=== PATIENT | male | born 1955 | race Caucasian/White ===

== ENCOUNTER → 2016-08-07 | Day surgery (SDC) | payer MEDICARE, OTHER ==
[~2016-08-07] VITALS: Ht 182.9 cm; Wt 74.5 kg
[~2016-08-07] MED LIST: BACITRACIN TOP OINT 15 GM TUBE ONE; BUPIVACAINE HCL PF 0.5% 30 ML VIAL ONE; EPINEPHrine HCL (1:1000) 30 MG/30 ML VIAL ONE; GLIM4TAB PO; HYDR-3583 PO; LACTATED RINGER'S 1000 ML INJ 1,000 ML ONE; LACTATED RINGER'S 1000 ML INJ 500 ML IV SCH; LIDOCAINE HCL 1% 20 ML VIAL ONE; LIDOCAINE HCL 2% 50 ML VIAL ONE; LISI-519 PO; METF1000 PO; METO50TA11 PO; ceFAZolin 2 GM PREMIX 50 ML IV SCH; ceFAZolin 2 GM PREMIX 50 ML ONE
[2016-08-07 12:28] VITALS: BP 156/96; PULSE 91; RESP 18; TEMP 98.1; O2SAT 100
[2016-08-07 15:40] VITALS: TEMP 98.4
[2016-08-07 16:00] VITALS: BP 157/93; PULSE 98; RESP 14; O2SAT 98
--- NOTE | 2016-08-10 12:55 | MP ---
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 POSTOPERATIVE DIAGNOSIS Squamous cell carcinoma in situ the left ring finger. SURGEON Howard Shi MD PROCEDURE PERFORMED Wide excision and full-thickness skin grafting left ring finger squamous cell carcinoma in situ Frozen section:squamous cell carcinoma in-situ. Margins clear No complications. ANESTHESIA Local with a mixture of 40% lidocaine 0.5% Marcaine 10 cc. TOURNIQUET TIME: Tourniquet time was 13 minutes + 17 minutes at 250 mmHg. FINDINGS: To PACU stable. PROCEDURE: The patient is a 61-year-old right-hand dominant male presented with complains of skin lesion over the left ring finger for the past 1-2 years. He had biopsy of the region done by ramp agent and was diagnosed with squamous cell carcinoma in-situ and referred to hand surgery for the same. On examination he had skin lesion along the ulnar aspect of the pulp of the ring finger measuring about 1 cm in diameter with elevated surface surrounding region extending to the nail fold. He had no proximal lymph nodes palpable. 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 The patient was explained risk and benefits of the procedure. The patient was brought to the operating room. The left upper extremity was thoroughly prepped and draped after performing appropriate time out, local anesthesia was infiltrated using 0.5 Marcaine and 2% lidocaine as a digital block. Incision site was then marked around the lesion which was on the ulnar aspect of the pulp and extending to the nail fold and at the epinychial skin fold after on limb elevation tourniquet was inflated to 250 mmHg. Incision was then made over the proposed incision site. Sharp dissection was carried out excising the skin lesion from the soft tissues underneath, no deeper infiltrations were noted. The specimen was marked, two short strands as distal and one long strand as volar, frozen section biopsy was squamous cell possible in-situ with positive margins in the proximal aspect. Another segment of skin was excised from the proximal aspect corresponding to the positive margin. The second specimen was negative for cancer. Attention was then directed to the hypothenar region after changing all instruments an elliptical skin incision was made over the hypothenar region and a full thickness hypothenar skin was harvested and the skin over the region was approximated using 5-0 Vicryl in a horizontal interrupted subdermal fashion followed by 4-0 Monocryl in a continuous subcuticular fashion. Mastisol, Steri-Strips were applied. Before closure tourniquet was deflated and initially the tourniquet time was 17 minutes. Bleeding points were controlled with bipolar cautery and a tourniquet was seen reinflated to control bleeding from the finger region. The second time the tourniquet went on up for 30 minutes. Bleeding points were cauterized with bipolar cautery and the skin graft was trimmed of the fat and other soft tissues and was applied to the bed of the excised portion of the ring finger. This was held in place with 4-0 chromic catgut in a continuous fashion. Using 4-0 nylon which were left long for both tying. A bolster was made with Xeroform and bacitracin and was started using the 4-0 nylon which was placed from the incision site. A 4 X 4 dressing and a bulky hand dressing was applied which was held in place by Darvin-Hugo and a volar splint was applied. Total tourniquet time was 30 + 17 minutes and he had good distal circulation at the end of the procedure. The patient was recovered and sent to Recovery Room in stable condition. He will follow up in [id number] days' time for dressing and splint change. Howard Shi MD SE/francisco javier /3:40 PM /12:45 PM [place]
== END | disposition home or self-care (01) ==
LOC: CSDC 11:58
PROVIDERS: ATTEND Surgery Surgery of the Hand
DX: D04.62 Carcinoma in situ of skin of left upper limb, including shoulder (principal); E11.9 Type 2 diabetes mellitus without complications; I10 Essential (primary) hypertension; I25.2 Old myocardial infarction
CPT/HCPCS: 11621; 15240; 88305; 88331; J0171; J0690; J7120